=== PATIENT | female | born 1975 | race Caucasian/White ===

== ENCOUNTER 2017-08-26 15:54 | Emergency (ER) | payer MEDICAID ==
--- NOTE | 2017-08-26 18:30 | EDPHY ---
H & P Stated Complaint: R ear pain, freq ear inf, recent cold symptoms, HPI/ROS: Chief complaint: Cold symptoms History of present illness: This is a 41-year-old female who presents to the emergency department for evaluation of persistent cold symptoms. She reports she has been sick for at least 3 weeks. She reports he has had intermittent fevers, ear pain and pressure, runny nose, nasal congestion, sore throat, cough and chest congestion and diffuse aches. She states symptoms are persistent. She is concerned as she does not appear to be recovering from the symptoms. She denies other associated signs or symptoms including no headache or neck pain, no trouble breathing, no rash. Review of systems: A 10 point review of systems was obtained and other than described above was negative - Personal History LMP (Females 10-55): 22-28 Days Ago - Medical/Surgical History Hx Asthma: No Hx Chronic Respiratory Disease: No Hx Diabetes: No Hx Cardiac Disease: No Hx Renal Disease: No Hx Cirrhosis: No Hx Alcoholism: No Hx HIV/AIDS: No Hx Splenectomy or Spleen Trauma: No Other PMH: freq otitis - Social History Smoking Status: Never smoked - Physical Exam Exam: General Appearance: Alert, nontoxic. Eyes: Pupils equal and round no pallor or injection. ENT, Mouth: Tympanic membranes the obvious effusions and mild erythema, external auditory canals, external ears and surrounding soft tissue including over the mastoids are unremarkable. Nasopharynx is injected. There is clear to green rhinorrhea. Oropharynx is injected. There is no edema. There is no exudate. There is no asymmetry. The uvula is midline. No elevation of the tongue. There is no hoarseness, no drooling, no trismus, no stridor. Respiratory: There are no retractions, lungs are clear to auscultation. Cardiovascular: Regular rate and rhythm. Gastrointestinal: Abdomen is soft and non tender, no masses, bowel sounds normal. Neurological: Alert and oriented x4. Strength and sensation intact and symmetrical. No meningismus. Skin: Warm and dry, no rashes. Musculoskeletal: Neck is supple non tender. Extremities are symmetrical, full range of motion. Psychiatric: Patient is oriented X 3, there is no agitation. Constitutional: Initial Vital Signs Temperature (C) 36.6 C 08/26/17 16:05 Heart Rate 81 08/26/17 16:05 Respiratory Rate 16 08/26/17 16:05 Blood Pressure 138/100 H 08/26/17 16:05 O2 Sat (%) 95 08/26/17 16:05 O2 Delivery Mode Room Air Allergies/Adverse Reactions: amoxicillin [From Augmentin] Allergy (Verified 08/26/17 16:04) clavulanic acid [From Augmentin] Allergy (Verified 08/26/17 16:04) erythromycin base Allergy (Verified 06/14/16 15:07) Sulfa (Sulfonamide Antibiotics) Allergy (Verified 06/14/16 15:07) tetracycline Allergy (Verified 06/14/16 15:07) Home Medications: Medication Instructions Recorded AMOXICILLIN TRIHYDRATE [Amoxil] 875 mg PO BID 10 Days tablet 08/26/17 Albuterol [Proventil Inhaler HFA 1 - 2 puffs IH Q4H #1 mdi 08/26/17 (*)] Codeine Phosphate/Guaifenesin 10 ml PO Q6 #120 ml 08/26/17 [Codeine-Guaifen 10-100 mg/5 ml] predniSONE 10 mg PO DAILY 5 Days tab 08/26/17 Medical Decision Making - Diagnostics Imaging Results: Imaging Impressions Chest X-Ray 08/26/17 17:15 Impression: 1. Clear lungs. No pneumonia or effusion. 2. Subacute anterior right sixth and seventh rib fractures. ED Course/Re-evaluation: Patient seen under the supervision of my secondary supervising physician Dr. Jacky Friedman. Patient presents to the emergency department for persistent cold symptoms. She is nontoxic. Afebrile and vital signs are stable. Viral swab is negative for pathogens. Chest x-ray is negative. I do believe given length of time she should be started on antibiotics for potential URI. She has multiple allergies. However I had a lengthy discussion with her and she states she has taken amoxicillin on multiple occasions and tolerates it just fine. I will place her on a course of amoxicillin. I further discussed symptomatic care with her with prescribed medications and over the counter medications. Rest hydration are discussed. She is to follow up with her primary care doctor for recheck. Strict return precautions are given. Patient voiced understanding and agreement with plan. Differential Diagnosis: Included but not limited to otitis media, sinusitis, pharyngitis, tonsillitis, bronchitis, pneumonia, influenza - Data Points Microbiology Results: MICROBIOLOGY 08/26/17 17:10 Nasal, Sinus - [place] Viral Transport Respiratory Panel ( PCR) - Final No Organism Detected Departure - Departure Disposition: Home, Routine, Self-Care Clinical Impression: Bronchitis, URI, acute Condition: Good Instructions: Acute Bronchitis (ED) Additional Instructions: Follow-up with your primary care doctor this week for recheck I recommend you use a nasal steroid like Flonase daily Consider an antihistamine decongestant combination such as Claritin D Use prescription medications as prescribed If symptoms worsen or new symptoms develop return to the emergency room for recheck Referrals: ANGELA MALDONADO [Primary Care Provider] - As per Instructions Prescriptions: Albuterol [Proventil Inhaler HFA (*)] 1 - 2 puffs IH Q4H #1 mdi AMOXICILLIN TRIHYDRATE [Amoxil] 875 mg PO BID 10 Days tablet Codeine Phosphate/Guaifenesin [Codeine-Guaifen 10-100 mg/5 ml] 10 ml PO Q6 #120 ml predniSONE 10 mg PO DAILY 5 Days tab
[2017-08-26 19:13] VITALS: BP 156/108; PULSE 78; RESP 15; TEMP 97.7; O2SAT 99
== END 2017-08-26 19:13 | disposition home or self-care (01) ==
DX: J20.9 Acute bronchitis, unspecified (principal); J06.9 Acute upper respiratory infection, unspecified

== ENCOUNTER 2017-09-07 17:38 | Emergency (ER) | payer MEDICAID ==
[2017-09-07 17:50] VITALS: RESP 18; O2SAT 98
[2017-09-07] MEDS ORDERED: NS 1,000 ML IV ONE ×2 (19:02)
[2017-09-07] MEDS ORDERED: ACETAMINOPHEN 325 MG TAB PO ONE (19:03)
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
[2017-09-07 21:18] VITALS: BP 144/94; PULSE 73; TEMP 98.2
== END 2017-09-07 21:22 | disposition home or self-care (01) ==
DX: E86.0 Dehydration (principal); E86.9 Volume depletion, unspecified

== ENCOUNTER 2017-12-07 21:49 | Emergency (ER) | payer MEDICAID ==
--- NOTE | 2017-12-07 22:07 | EDPHY ---
H & P Stated Complaint: Cough, SOB Time Seen by Provider: 12/07/17 22:06 HPI/ROS: HPI: This is a 42-year-old female who presents with Chief Complaint: Cough, shortness of breath Location: Chest Quality: Dyspnea, cough Duration: 2 days Signs and Symptoms: no fever, + nausea, no vomiting, no diarrhea, no urinary symptoms, no chest pain, no shortness of breath, no wheezing, no cough, no sore throat, no neck stiffness, no joint pain, no swollen glands, + bilateral ear pain, no rash Timing: Acute, intermittent episodes Severity: Moderate Context: Patient presents with 2 day history of nonproductive cough, fatigue, bilateral ear plugging and feeling of shortness of breath. She reports that her boyfriend had a similar viral bronchitis diagnosis several weeks ago and she believes she may have contracted it from him. No history of lung disease. She reports that her appetite has been poor. Denies any neck stiffness/fever/ chest pain/lower extremity edema/long distance travel. Nonsmoker. LMP 2-3 weeks ago. Patient reports that she has white coat hypertension and anxiety. Denies any recreational drug use. Modifying Factors: She has tried no [id number] medications Comment: ROS: see HPI Constitutional: + fever, no chills, no weight loss Eyes: No blurred vision Respiratory: No shortness of breath, no cough Cardiovascular: No chest pain, no palpitations Gastrointestinal: No nausea, no vomiting, no diarrhea, no hematemesis, no blood in stool Genitourinary: No dysuria, no blood in urine Extremities: No myalgias, no edema Neurologic: No weakness, no numbness Skin: No rashes, no petechiae Hematologic: No bruising, no bleeding MEDICAL/SURGICAL/SOCIAL HISTORY: Medical history: freq otitis media, anxiety, pneumonia Surgical history: Denies Social history: Employed. Family history noncontributory. CONSTITUTIONAL: Extremely well-appearing but extremely anxious middle-aged white female, awake and alert, no obvious distress HEENT: Atraumatic and normocephalic, PERRL, EOMI. Nares patent; no rhinorrhea; no nasal mucosal edema. Tympanic membranes clear. Oropharynx clear, no exudate and moist pink mucosa. Airway patent. No lymphadenopathy. No meningismus. Cardiovascular: Normal S1/S2, tachycardia, regular rhythm, without murmur rub or gallop. PULMONARY/CHEST: Symmetrical and nontender. Faint upper airway sounds transmission. Clear to auscultation bilaterally. Good air movement. No accessory muscle usage. Tachypnea ABDOMEN: Soft, nondistended, nontender, no rebound, no guarding, no peritoneal signs, no masses or organomegaly. No CVAT. EXTREMITIES: 2/2 pulses, strength 5/5, no deformities, no clubbing, no cyanosis or edema. NEUROLOGICAL: no focal neuro deficits. GCS 15. SKIN: Warm and dry, no erythema. no rash. Good capillary refill. Source: Patient Exam Limitations: No limitations - Personal History LMP (Females 10-55): 15-21 Days Ago Current Tetanus/Diphtheria Vaccine: Yes Current Tetanus Diphtheria and Acellular Pertussis (TDAP): Yes - Medical/Surgical History Hx Asthma: No Hx Chronic Respiratory Disease: No Hx Diabetes: No Hx Cardiac Disease: No Hx Renal Disease: No Hx Cirrhosis: No Hx Alcoholism: No Hx HIV/AIDS: No Hx Splenectomy or Spleen Trauma: No Other PMH: freq otitis, anxiety, pneumonia - Social History Smoking Status: Never smoked Constitutional: Initial Vital Signs Temperature (C) 36.5 C 12/07/17 21:59 Heart Rate 135 H 12/07/17 21:59 Respiratory Rate 18 12/07/17 21:59 Blood Pressure 146/108 H 12/07/17 21:59 O2 Sat (%) 94 12/07/17 21:59 O2 Delivery Mode Room Air Allergies/Adverse Reactions: amoxicillin [From Augmentin] Allergy (Verified 09/07/17 17:45) clavulanic acid [From Augmentin] Allergy (Verified 09/07/17 17:45) erythromycin base Allergy (Verified 09/07/17 17:45) Sulfa (Sulfonamide Antibiotics) Allergy (Verified 09/07/17 17:45) tetracycline Allergy (Verified 09/07/17 17:45) Home Medications: Medication Instructions Recorded Albuterol Sulfate [Proair Hfa] 1 - 2 puffs IH Q4 PRN #1 hfa.aer.ad 12/07/17 Benzonatate [Tessalon Pearles (RX)] 100 mg PO Q6 PRN #12 cap 12/07/17 Codeine Phosphate/Guaifenesin 10 ml PO HS PRN #120 ml 12/07/17 [Guaifenesin-Codeine Syrup] Fluticasone Furoate [Flonase 1 spray NS DAILY #1 spray.susp 12/07/17 Sensimist] Medical Decision Making - Diagnostics EKG Interpretation: 12 lead EKG: Indication: Shortness of breath Rhythm: Sinus tachycardia, rate of 123 beats per minute [place]: Normal Intervals: Normal QRS: Normal ST segments: Normal T-waves: Normal INTERPRETATION: No acute ischemic changes/arrhythmia The 12 lead EKG was interpreted by myself and with attending. Imaging Results: Imaging Impressions Chest X-Ray 12/07/17 22:10 Impression: 1. No active cardiopulmonary disease seen. ED Course/Re-evaluation: Vital signs reviewed upon arrival; tachycardia noted; no signs of hypoxia/ respiratory distress Lung sounds are completely clear; upper airway transmission of sounds noted accompanied by anxiety. Given 1 mg of Ativan and p.o. Tessalon Perles 200 mg. Chest x-ray and EKG ordered. Doubt influenza; not Tamiflu candidate; will not order Influenza test 0: Reassessed patient. Heart rate now 102. No more coughing episodes. Reports she is supposed to be taking Flonase for eustachian tube dysfunction but has run out of her prescription. Geff patient. No signs of otitis media on exam. 2314: Chest x-ray my read shows no opacity, no effusion, no pneumothorax, no widened mediastinum. Given prescription for Flonase, Tessalon Perles, albuterol inhaler Vital signs improved at discharge. This patient was seen under the supervision of my secondary supervising physician. I evaluated care for this patient independently. At discharge, patient asking for Robitussin with codeine cough syrup to use at night along with the Tessalon Perles to use during the day. Prescription provided to patient per her request. Differential Diagnosis: Differential including but not limited to viral syndromes including influenza, bronchitis, pneumonia and sepsis. - Data Points Medications Given: Discontinued Medications Benzonatate (Tessalon Pearles) 200 mg PO EDNOW ONE Stop: 12/07/17 22:11 Last Admin: 12/07/17 22:13 Dose: 200 mg Lorazepam (Ativan) 1 mg PO EDNOW ONE Stop: 12/07/17 22:11 Last Admin: 12/07/17 22:13 Dose: 1 mg Departure - Departure Clinical Impression: Eustachian tube dysfunction Qualifiers: Laterality: bilateral Qualified Code(s): H69.83 - Other specified disorders of Eustachian tube, bilateral Condition: Good Instructions: Earache (ED) Additional Instructions: Chest x-ray shows no signs of pneumonia. It appears that you have a viral bronchitis and eustachian tube dysfunction. Take Tylenol 650 mg every 4 hours and/or Ibuprofen 600 mg every 8 hours with food as needed for pain. Use Tessalon Perles every 6 hours as needed for cough. Use albuterol inhaler every 4 hr as needed for shortness of breath/wheezing. Consume a minimum of 8-10 glasses of water or electrolyte fluid replacement drinks that include Gatorade, Powerade, Pedialyte. Eat a bland diet for the next 48 hours and then slowly advance as tolerated. Return to the ER immediately if you experience fevers/chills, shortness of breath, abdominal pain, inability to tolerate oral intake, or any other symptoms that concern you. Referrals: CECE GURROLA [Other] - As per Instructions Prescriptions: Albuterol Sulfate [Proair Hfa] 1 - 2 puffs IH Q4 PRN #1 hfa.aer.ad PRN Reason: Short Of Breath/Dyspnea Benzonatate [Tessalon Pearles (RX)] 100 mg PO Q6 PRN #12 cap PRN Reason: Cough, Moderate Codeine Phosphate/Guaifenesin [Guaifenesin-Codeine Syrup] 10 ml PO HS PRN #120 ml PRN Reason: Cough, Severe Fluticasone Furoate [Flonase Sensimist] 1 spray NS DAILY #1 spray.susp
[2017-12-07] MEDS ORDERED: LORazepam 1 MG TAB PO ONE (22:10)
[2017-12-07] MEDS ORDERED: BENZONATATE 100 MG CAP PO ONE (22:10)
--- NOTE | 2017-12-07 22:19 | CPEKG ---
Heart Rate: 123 RR Interval: 488 P-R Interval: 116 QRSD Interval: 90 QT Interval: 304 QTC Interval: 435 P Dawson: 65 QRS Dawson: 65 T Wave Dawson: 25 EKG Severity - ABNORMAL ECG - EKG Impression: SINUS TACHYCARDIA EKG Impression: ABERRANT COMPLEX EKG Impression: PROBABLE LEFT ATRIAL ABNORMALITY EKG Impression: CONSIDER INFERIOR INFARCT Electronically Signed By: Jacky Doll 08-Dec-2017 03:50:55
[2017-12-07 23:26] VITALS: BP 110/78
== END 2017-12-07 23:25 | disposition home or self-care (01) ==
DX: H69.83 Other specified disorders of Eustachian tube, bilateral (principal)

== ENCOUNTER 2017-12-25 06:12 | Emergency (ER) | payer MEDICAID ==
[2017-12-25 06:21] VITALS: BP 147/109
[2017-12-25] MEDS ORDERED: ALBUTEROL INH PREPACK MDI TAKEHOME ONE (06:54)
--- NOTE | 2017-12-25 06:56 | EDPHY ---
H & P Stated Complaint: COUGH, SOB, VOMIT, CP X 1 MONTH Time Seen by Provider: 12/25/17 06:53 - Personal History LMP (Females 10-55): Irregular Current Tetanus Diphtheria and Acellular Pertussis (TDAP): Yes - Medical/Surgical History Hx Asthma: No Hx Chronic Respiratory Disease: No Hx Diabetes: No Hx Cardiac Disease: No Hx Renal Disease: No Hx Cirrhosis: No Hx Alcoholism: No Hx HIV/AIDS: No Hx Splenectomy or Spleen Trauma: No Other PMH: freq otitis, anxiety, pneumonia - Social History Smoking Status: Never smoked Constitutional: Initial Vital Signs Temperature (C) 36.4 C 12/25/17 06:18 Heart Rate 136 H 12/25/17 06:18 Respiratory Rate 20 12/25/17 06:18 Blood Pressure 147/109 H 12/25/17 06:18 O2 Sat (%) 97 12/25/17 06:18 O2 Delivery Mode Room Air Allergies/Adverse Reactions: amoxicillin [From Augmentin] Allergy (Verified 09/07/17 17:45) clavulanic acid [From Augmentin] Allergy (Verified 09/07/17 17:45) erythromycin base Allergy (Verified 09/07/17 17:45) Sulfa (Sulfonamide Antibiotics) Allergy (Verified 09/07/17 17:45) tetracycline Allergy (Verified 09/07/17 17:45) Home Medications: Medication Instructions Recorded Albuterol 12/25/17 HYDROcodone/HOMATROPINE HYCODA 1 tsp PO Q4-6PRN PRN #120 ml 12/25/17 [Hycodan Syrup (RX)] Tylenol 12/25/17 levOFLOXACIN [levAQUIN 750 MG (RX)] 750 mg PO DAILY #10 tab 12/25/17 Medical Decision Making ED Course/Re-evaluation: CHIEF COMPLAINT: Persistent cough with post-tussive emesis HISTORY OF PRESENT ILLNESS: 42-year-old female who is generally quite healthy and has a normal immune system. She has had a three-week to 4 week persistent cough that is now worsening. She has been diagnosed by her primary care physician with bronchitis and costochondritis. She has tried a course of Ceftin , prednisone, and a meter dose inhaler. She is not getting much better and came here this morning. She is been finished with those medicines for several days. She denies any fevers or chills. She denies any significant systemic illness. REVIEW OF SYSTEMS: A 10 point review of systems was performed and is negative with the exception of the elements mentioned in the history of present illness. PHYSICAL EXAM: HR, BP, O2 Sat, RR. Temp noted General Appearance: Alert, well hydrated, appropriate, and non-toxic appearing. Head: Atraumatic without scalp tenderness or obvious injury Eyes: Pupils equal, round, reactive to light and accommodation, EOMI, no trauma , no injection. Ears: Clear bilaterally, no perforation, normal landmarks Nose: Atraumatic, no rhinorrhea, clear. Throat: There is no erythema or exudates, no lesions, normal tonsils, mucus membranes moist. Neck: Supple, 2+ carotid upstroke, nontender, no lymphadenopathy. Respiratory: No retractions, no distress, significant end-expiratory wheezes, and no accessory muscle use. Coarse rhonchi throughout most lung doe Cardiovascular: Regular rate and rhythm, no murmurs, rubs, or gallops. Bilateral carotid, radial, dorsalis pedis, and posterior tibial pulses intact. Good capillary refill all extremities. Gastrointestinal: Abdomen is soft, nontender, non-distended, no masses, no rebound, no guarding, no peritoneal signs. Musculoskeletal: Normal active ROM of all extremities, atraumatic. Neurological: Alert, appropriate, and interactive. The patient has normal DTRs and non-focal cranial nerves, motor, sensory, and cerebellar exam. Skin: No rashes, good turgor, no nodules on palpation. Past medical history: None Past surgical history: Noncontributory Family history: Noncontributory Social history: Single, employed, does not abuse tobacco drugs or alcohol DIAGNOSTICS/PROCEDURES/CRITICAL CARE TIME: None required DIFFERENTIAL DIAGNOSIS: The differential diagnosis for the patient's cough and posttussive emesis included but was not limited to pneumonia, myocardial infarction, bronchitis, pulmonary edema MEDICAL DECISION MAKING: This patient has persistent respiratory infection for the last 3-4 weeks. She has tried a course of Ceftin but I am concerned that she may have an intracellular type organism like mycoplasma Legionella or chlamydia. I have given this patient Levaquin since she has a allergy to macro lids. She develops hives. I did warn her about the tendon injuries associated with Levaquin but thought we should try it at this point since she is allergic to many other antibiotics. Additionally I have given her Hycodan elix. She will follow up with her physician at [facility] Ana ngo in the next 2 days. Departure - Departure Disposition: Home, Routine, Self-Care Clinical Impression: Acute bronchitis Qualifiers: Bronchitis organism: Mycoplasma pneumoniae Qualified Code(s): J20.0 - Acute bronchitis due to Mycoplasma pneumoniae Condition: Good Instructions: Acute Bronchitis (ED) Additional Instructions: Follow-up with Ana Ngo from [place] in the next 1-2 days please Referrals: NONE *PRIMARY CARE P,. [Primary Care Provider] - As per Instructions Prescriptions: HYDROcodone/HOMATROPINE HYCODA [Hycodan Syrup (RX)] 1 tsp PO Q4-6PRN PRN #120 ml PRN Reason: Cough, Moderate levOFLOXACIN [levAQUIN 750 MG (RX)] 750 mg PO DAILY #10 tab
== END 2017-12-25 07:02 | disposition home or self-care (01) ==
DX: J20.0 Acute bronchitis due to Mycoplasma pneumoniae (principal)

== ENCOUNTER 2018-02-07 23:48 | Emergency (ER) | payer MEDICAID ==
--- NOTE | 2018-02-08 00:08 | CPEKG ---
Heart Rate: 106 RR Interval: 566 P-R Interval: 152 QRSD Interval: 88 QT Interval: 332 QTC Interval: 441 P Trout: 60 QRS Trout: 66 T Wave Trout: 50 EKG Severity - BORDERLINE ECG - EKG Impression: SINUS TACHYCARDIA EKG Impression: PROBABLE LEFT ATRIAL ABNORMALITY Electronically Signed By: Jacky Doll 08-Feb-2018 07:12:50
[2018-02-08] MEDS ORDERED: fentaNYL 100 MCG/2 ML INJ IVP ONE (00:20)
[2018-02-08] MEDS ORDERED: IOPAMIDOL (ISOVUE-300) 100 ML BTL ONE (00:24)
[2018-02-08 00:54] LABS: PLATELET COUNT 164 10^3/uL (150-400)
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
[2018-02-08] MEDS ORDERED: IBUPROFEN 600 MG TAB PO ONE (02:08)
[2018-02-08 02:40] VITALS: BP 134/78
== END 2018-02-08 02:44 | disposition home or self-care (01) ==
LOC: EEVIPCON 23:48
DX: S20.20XA Contusion of thorax, unspecified, initial encounter (principal); S30.1XXA Contusion of abdominal wall, initial encounter; S30.811A Abrasion of abdominal wall, initial encounter; Y04.0XXA Assault by unarmed brawl or fight, initial encounter; Y99.8 Other external cause status; Y93.89 Activity, other specified
CPT/HCPCS: 82435-PO; 82565-PO; 82947-PO; 84132-PO; 84295-PO; 84520-PO; 85014-PO; 96374; J3010; Q9967